=== PATIENT | male | born 1990 | race Caucasian/White ===

== ENCOUNTER 2016-07-01 13:10 | Emergency (ER) | payer SELFPAY ==
[2016-07-01] MEDS ORDERED: OSTEO BI-FLEX1 EAC5 PO (14:05)
[2016-07-01] MEDS ORDERED: [UNRECOGNIZED DRUG - OTHER] (14:05)
[2016-07-01] MEDS ORDERED: MULTIVITAMINS1 EAC6 PO (14:06)
== END 2016-07-01 14:30 ==
LOC: EDMED 13:10
DX: S60.221A Contusion of right hand, initial encounter (principal); F17.210 Nicotine dependence, cigarettes, uncomplicated; W22.01XA Walked into wall, initial encounter; Y92.009 Unspecified place in unspecified non-institutional (private) residence as the place of occurrence of the external cause